=== PATIENT | male | born 2000 | race American Indian/Alaskan Native ===

== ENCOUNTER 2019-01-25 09:54 | Emergency (ER) | payer OTHER ==
[2019-01-25 10:02] VITALS: BP 126/63
[2019-01-25 10:45] LABS: Bilirubin,Urine NEG (Negative); Blood,Urine NEG (Negative); Color,Urine Yellow (Yellow); Mucus,Urine FEW /HPF; Protein,Urine <15 mg/dL mg/dL (Negative); Urobilinogen,Urine < 2.0 mg/dL (<2.0); WBC,Urine < 1.0 /HPF (0.0-6.0)
[2019-01-25 11:02] LABS: Amphetamine Screen,Urine PRESUMPTIVE NEGATIVE; Benzodiazepines Screen,Urine PRESUMPTIVE NEGATIVE; Cannabinoid Screen,Urine PRESUMPTIVE NEGATIVE; Cocaine Screen,Urine PRESUMPTIVE NEGATIVE; Methadone Screen,Urine PRESUMPTIVE NEGATIVE; Opiate Screen,Urine PRESUMPTIVE NEGATIVE
[2019-01-25 11:55] LABS: Hematocrit 40.1 % (35.5-45.6); Mean Corpuscular HGB Conc 33 % (32-34); Mean Corpuscular Volume 80 fl (84-94); Platelet Count 272 K/mm3 (140-440); Red Blood Count 5.01 M/mm3 (3.65-5.03); Red Cell Distribution Width 13.8 % (13.2-15.2)
[2019-01-25 12:09] LABS: BUN/Creatinine Ratio 6; Blood Urea Nitrogen 6 mg/dL (9-20); Calcium 9.6 mg/dL (8.4-10.2); Hemolysis Index 5
[2019-01-25 12:53] LABS: Basophils % (Manual) 0 % (0.0-1.8); Eosinophils % (Manual) 0 % (0.0-4.3); Total Cells Counted 100
[2019-01-25 12:54] LABS: Large Platelets Few; Platelet Estimate Consistent w Auto; RBC Morphology Normal
--- NOTE | 2019-01-25 13:16 | Emergency Department Report ---
ED Psych HPI - General Chief Complaint: Psych Stated Complaint: MH EVALUATION Time Seen by Provider: 01/25/19 11:30 Source: patient, family Mode of arrival: Ambulatory Limitations: No Limitations - History of Present Illness Initial Comments: 18-year-old male whoin past medical or surgical history presents to the hospital with worsening mental health symptoms for the past year. Father states he is disorganized and has had memory problems. He also has disorganized thoughts and hallucinations. Patient admits to hearing voices. He denies suicidal or homicidal ideation. He denies any physical complaints at this time. Father also expresses concern due to history of mental health in the family. - Related Data Allergies Allergy/AdvReac Type Severity Reaction Status Date / Time No Known Allergies Allergy Unverified 01/25/19 09:55 ED Review of Systems ROS: Stated complaint: MH EVALUATION Other details as noted in HPI Comment: All other systems reviewed and negative ED Past Medical Hx - Past Medical History Previous Medical History?: No - Surgical History Past Surgical History?: No - Social History Smoking Status: Current Every Day Smoker Substance Use Type: Marijuana ED Physical Exam - General Limitations: No Limitations - Other Other exam information: General: No limitations, patient is alert in no acute distress Head exam: Atraumatic, normocephalic Eyes exam: Normal appearance, pupils equal reactive to light, extraocular movements intact ENT: Moist mucous membrane Neck exam: Normal inspection, full range of motion, no meningismus nontender Respiratory exam: Clear to auscultation bilateral, no wheezes, rales, crackles Cardiovascular: Normal rate and rhythm, normal heart sounds Abdomen: Soft, nondistended, and nontender, with normal bowel sounds, no rebound, or guarding Extremity: Full range of motion normal inspection no deformity Back: Normal Inspection, full range of motion, no tenderness Neurologic: Alert, oriented x3, cranial nerves intact, no motor or sensory deficit Psychiatric: Calm, Cooperative, poor historian, laughing intermittently while obtaining history from father Skin: Warm, dry, intact ED Course Vital Signs 01/25/19 10:00 Temperature 97.8 F Pulse Rate 53 L Respiratory 18 Rate Blood Pressure 126/63 O2 Sat by Pulse 99 Oximetry ED Medical Decision Making - Lab Data Result diagrams: 01/25/19 11:16 01/25/19 11:16 Lab Results 01/25/19 01/25/19 01/25/19 Range/Units 10:15 10:15 11:16 WBC (4.5-11.0) K/mm3 RBC (3.65-5.03) M/mm3 Hgb (11.8-15.2) gm/dl Hct (35.5-45.6) % MCV (84-94) fl MCH (28-32) pg MCHC (32-34) % RDW (13.2-15.2) % Plt Count (140-440) K/mm3 Add Manual Diff Total Counted Seg Neutrophils % Seg Neuts % (Manual) (40.0-70.0) % Band Neutrophils % % Lymphocytes % (Manual) (13.4-35.0) % Reactive Lymphs % (Man) % Monocytes % (Manual) (0.0-7.3) % Eosinophils % (Manual) (0.0-4.3) % Basophils % (Manual) (0.0-1.8) % Metamyelocytes % % Myelocytes % % Promyelocytes % % Blast Cells % % Nucleated RBC % Seg Neutrophils # Man (1.8-7.7) K/mm3 Band Neutrophils # K/mm3 Lymphocytes # (Manual) (1.2-5.4) K/mm3 Abs React Lymphs (Man) K/mm3 Monocytes # (Manual) (0.0-0.8) K/mm3 Eosinophils # (Manual) (0.0-0.4) K/mm3 Basophils # (Manual) (0.0-0.1) K/mm3 Metamyelocytes # K/mm3 Myelocytes # K/mm3 Promyelocytes # K/mm3 Blast Cells # K/mm3 WBC Morphology Hypersegmented Neuts Hyposegmented Neuts Hypogranular Neuts Smudge Cells Toxic Granulation Toxic Vacuolation Dohle Bodies Pelger-Huet Anomaly Daryl Rods Platelet Estimate Clumped Platelets Plt Clumps, EDTA Large Platelets Giant Platelets Platelet Satelliting Plt Morphology Comment RBC Morphology Dimorphic RBCs Polychromasia Hypochromasia Poikilocytosis Anisocytosis Microcytosis Macrocytosis Spherocytes Pappenheimer Bodies Sickle Cells Target Cells Tear Drop Cells Ovalocytes Helmet Cells [place] Bodies [place] Rings [place] Cells Bite Cells Crenated Cell Elliptocytes Acanthocytes (Spur) Rouleaux Hemoglobin C Crystals Schistocytes Malaria parasites Adis Bodies Hem Pathologist Commnt Sodium (137-145) mmol/L Potassium (3.6-5.0) mmol/L Chloride (98-107) mmol/L Carbon Dioxide (22-30) mmol/L Anion Gap mmol/L BUN (9-20) mg/dL Creatinine (0.8-1.5) mg/dL Estimated GFR ml/min BUN/Creatinine Ratio % Glucose (75-100) mg/dL Calcium (8.4-10.2) mg/dL Urine Color Yellow (Yellow) Urine Turbidity Clear (Clear) Urine pH 7.0 (5.0-7.0) Ur Specific [place] 1.006 (1.003-1.030) Urine Protein <15 mg/dl (Negative) mg/dL Urine Glucose (UA) Neg (Negative) mg/dL Urine Ketones Neg (Negative) mg/dL Urine Blood Neg (Negative) Urine Nitrite Neg (Negative) Urine Bilirubin Neg (Negative) Urine Urobilinogen < 2.0 (<2.0) mg/dL Ur Leukocyte Esterase Neg (Negative) Urine WBC (Auto) < 1.0 (0.0-6.0) /HPF Urine RBC (Auto) 2.0 (0.0-6.0) /HPF Urine Mucus Few /HPF Salicylates < 0.3 L (2.8-20.0) mg/dL Urine Opiates Screen Presumptive negative Urine Methadone Screen Presumptive negative Acetaminophen (10.0-30.0) ug/mL Ur Barbiturates Screen Presumptive negative Ur Phencyclidine Scrn Presumptive negative Ur Amphetamines Screen Presumptive negative U Benzodiazepines Scrn Presumptive negative Urine Cocaine Screen Presumptive negative U Marijuana (THC) Screen Presumptive negative Drugs of Abuse Note Disclamer Plasma/Serum Alcohol (0-0.07) % 01/25/19 01/25/19 01/25/19 Range/Units 11:16 11:16 11:16 WBC (4.5-11.0) K/mm3 RBC (3.65-5.03) M/mm3 Hgb (11.8-15.2) gm/dl Hct (35.5-45.6) % MCV (84-94) fl MCH (28-32) pg MCHC (32-34) % RDW (13.2-15.2) % Plt Count (140-440) K/mm3 Add Manual Diff Total Counted Seg Neutrophils % Seg Neuts % (Manual) (40.0-70.0) % Band Neutrophils % % Lymphocytes % (Manual) (13.4-35.0) % Reactive Lymphs % (Man) % Monocytes % (Manual) (0.0-7.3) % Eosinophils % (Manual) (0.0-4.3) % Basophils % (Manual) (0.0-1.8) % Metamyelocytes % % Myelocytes % % Promyelocytes % % Blast Cells % % Nucleated RBC % Seg Neutrophils # Man (1.8-7.7) K/mm3 Band Neutrophils # K/mm3 Lymphocytes # (Manual) (1.2-5.4) K/mm3 Abs React Lymphs (Man) K/mm3 Monocytes # (Manual) (0.0-0.8) K/mm3 Eosinophils # (Manual) (0.0-0.4) K/mm3 Basophils # (Manual) (0.0-0.1) K/mm3 Metamyelocytes # K/mm3 Myelocytes # K/mm3 Promyelocytes # K/mm3 Blast Cells # K/mm3 WBC Morphology Hypersegmented Neuts Hyposegmented Neuts Hypogranular Neuts Smudge Cells Toxic Granulation Toxic Vacuolation Dohle Bodies Pelger-Huet Anomaly Daryl Rods Platelet Estimate Clumped Platelets Plt Clumps, EDTA Large Platelets Giant Platelets Platelet Satelliting Plt Morphology Comment RBC Morphology Dimorphic RBCs Polychromasia Hypochromasia Poikilocytosis Anisocytosis Microcytosis Macrocytosis Spherocytes Pappenheimer Bodies Sickle Cells Target Cells Tear Drop Cells Ovalocytes Helmet Cells [place] Bodies [place] Rings [place] Cells Bite Cells Crenated Cell Elliptocytes Acanthocytes (Spur) Rouleaux Hemoglobin C Crystals Schistocytes Malaria parasites Adis Bodies Hem Pathologist Commnt Sodium 139 (137-145) mmol/L Potassium 3.9 (3.6-5.0) mmol/L Chloride 101.4 (98-107) mmol/L Carbon Dioxide 27 (22-30) mmol/L Anion Gap 15 mmol/L BUN 6 L (9-20) mg/dL Creatinine 1.0 (0.8-1.5) mg/dL Estimated GFR > 60 ml/min BUN/Creatinine Ratio 6 % Glucose 98 (75-100) mg/dL Calcium 9.6 (8.4-10.2) mg/dL Urine Color (Yellow) Urine Turbidity (Clear) Urine pH (5.0-7.0) Ur Specific [place] (1.003-1.030) Urine Protein (Negative) mg/dL Urine Glucose (UA) (Negative) mg/dL Urine Ketones (Negative) mg/dL Urine Blood (Negative) Urine Nitrite (Negative) Urine Bilirubin (Negative) Urine Urobilinogen (<2.0) mg/dL Ur Leukocyte Esterase (Negative) Urine WBC (Auto) (0.0-6.0) /HPF Urine RBC (Auto) (0.0-6.0) /HPF Urine Mucus /HPF Salicylates (2.8-20.0) mg/dL Urine Opiates Screen Urine Methadone Screen Acetaminophen < 5.0 L (10.0-30.0) ug/mL Ur Barbiturates Screen Ur Phencyclidine Scrn Ur Amphetamines Screen U Benzodiazepines Scrn Urine Cocaine Screen U Marijuana (THC) Screen Drugs of Abuse Note Plasma/Serum Alcohol < 0.01 (0-0.07) % 01/25/19 Range/Units 11:16 WBC 2.2 L (4.5-11.0) K/mm3 RBC 5.01 (3.65-5.03) M/mm3 Hgb 13.0 (11.8-15.2) gm/dl Hct 40.1 (35.5-45.6) % MCV 80 L (84-94) fl MCH 26 L (28-32) pg MCHC 33 (32-34) % RDW 13.8 (13.2-15.2) % Plt Count 272 (140-440) K/mm3 Add Manual Diff Complete Total Counted 100 Seg Neutrophils % Bicycle Racer Seg Neuts % (Manual) 22.0 L (40.0-70.0) % Band Neutrophils % 2.0 % Lymphocytes % (Manual) 54.0 H (13.4-35.0) % Reactive Lymphs % (Man) 5.0 % Monocytes % (Manual) 17.0 H (0.0-7.3) % Eosinophils % (Manual) 0 (0.0-4.3) % Basophils % (Manual) 0 (0.0-1.8) % Metamyelocytes % 0 % Myelocytes % 0 % Promyelocytes % 0 % Blast Cells % 0 % Nucleated RBC % Not Reportable Seg Neutrophils # Man 0.5 L (1.8-7.7) K/mm3 Band Neutrophils # 0.0 K/mm3 Lymphocytes # (Manual) 1.2 (1.2-5.4) K/mm3 Abs React Lymphs (Man) 0.1 K/mm3 Monocytes # (Manual) 0.4 (0.0-0.8) K/mm3 Eosinophils # (Manual) 0.0 (0.0-0.4) K/mm3 Basophils # (Manual) 0.0 (0.0-0.1) K/mm3 Metamyelocytes # 0.0 K/mm3 Myelocytes # 0.0 K/mm3 Promyelocytes # 0.0 K/mm3 Blast Cells # 0.0 K/mm3 WBC Morphology Not Reportable Hypersegmented Neuts Not Reportable Hyposegmented Neuts Not Reportable Hypogranular Neuts Not Reportable Smudge Cells Not Reportable Toxic Granulation Not Reportable Toxic Vacuolation Not Reportable Dohle Bodies Not Reportable Pelger-Huet Anomaly Not Reportable Daryl Rods Not Reportable Platelet Estimate Consistent w auto Clumped Platelets Not Reportable Plt Clumps, EDTA Not Reportable Large Platelets Few Giant Platelets Not Reportable Platelet Satelliting Not Reportable Plt Morphology Comment Not Reportable RBC Morphology Normal Dimorphic RBCs Not Reportable Polychromasia Not Reportable Hypochromasia Not Reportable Poikilocytosis Not Reportable Anisocytosis Not Reportable Microcytosis Not Reportable Macrocytosis Not Reportable Spherocytes Not Reportable Pappenheimer Bodies Not Reportable Sickle Cells Not Reportable Target Cells Not Reportable Tear Drop Cells Not Reportable Ovalocytes Not Reportable Helmet Cells Not Reportable [place] Bodies Not Reportable [place] Rings Not Reportable [place] Cells Not Reportable Bite Cells Not Reportable Crenated Cell Not Reportable Elliptocytes Not Reportable Acanthocytes (Spur) Not Reportable Rouleaux Not Reportable Hemoglobin C Crystals Not Reportable Schistocytes Not Reportable Malaria parasites Not Reportable Adis Bodies Not Reportable Hem Pathologist Commnt No Sodium (137-145) mmol/L Potassium (3.6-5.0) mmol/L Chloride (98-107) mmol/L Carbon Dioxide (22-30) mmol/L Anion Gap mmol/L BUN (9-20) mg/dL Creatinine (0.8-1.5) mg/dL Estimated GFR ml/min BUN/Creatinine Ratio % Glucose (75-100) mg/dL Calcium (8.4-10.2) mg/dL Urine Color (Yellow) Urine Turbidity (Clear) Urine pH (5.0-7.0) Ur Specific [place] (1.003-1.030) Urine Protein (Negative) mg/dL Urine Glucose (UA) (Negative) mg/dL Urine Ketones (Negative) mg/dL Urine Blood (Negative) Urine Nitrite (Negative) Urine Bilirubin (Negative) Urine Urobilinogen (<2.0) mg/dL Ur Leukocyte Esterase (Negative) Urine WBC (Auto) (0.0-6.0) /HPF Urine RBC (Auto) (0.0-6.0) /HPF Urine Mucus /HPF Salicylates (2.8-20.0) mg/dL Urine Opiates Screen Urine Methadone Screen Acetaminophen (10.0-30.0) ug/mL Ur Barbiturates Screen Ur Phencyclidine Scrn Ur Amphetamines Screen U Benzodiazepines Scrn Urine Cocaine Screen U Marijuana (THC) Screen Drugs of Abuse Note Plasma/Serum Alcohol (0-0.07) % - Radiology Data Radiology results: report reviewed PROCEDURE: CT HEAD/BRAIN WO CON TECHNIQUE: Computerized tomography of the head was performed without contrast material. CT DOSE LENGTH PRODUCT: 928.2 mGycm HISTORY: psychosis COMPARISONS: None FINDINGS: Skull and scalp: Normal . Paranasal sinuses: Normal . Ventricles and subarachnoid spaces: Normal . Cerebrum: No evidence of hemorrhage, acute infarction or mass . Cerebellum and brainstem: No evidence of hemorrhage, acute infarction or mass . IMPRESSION: No evidence of acute intracranial pathology. - Differential Diagnosis new-onset psychosis, schizophrenia, bipolar, drug abuse Critical Care Time: No Critical care attestation.: If time is entered above; I have spent that time in minutes in the direct care of this critically ill patient, excluding procedure time. ED Disposition Clinical Impression: Leukopenia, Psychosis Disposition: DC-01 TO HOME OR SELFCARE Is pt being admited?: No Does the pt Need Aspirin: No Condition: Stable Instructions: Brief Psychotic Disorder (ED) Additional Instructions: Take the medication as prescribed. Follow up with your doctor or the clinic/doctor provided. Return if symptoms worsen as indicated by your discharge instructions It is very Important that you follow up with a psychiatrist for further evaluation and diagnosis of your psychiatric disorder. It is also important that you follow up with your primary care doctor for your low white blood cell count. A primary care doctor can monitor and determine if further testing is required. Take a copy of the CAT scan and labs are provided to your doctors for follow-up Referrals[facility] [Outside] - 3-5 Days VALLONIA JOANNA WHITTAKER MD [Primary Care Provider] - 3-5 Days YONIS SHOOK MD [Staff Physician] - 3-5 Days (primary care doctor ) Time of Disposition: 16:08
--- NOTE | 2019-01-25 15:43 | Cat Scan Report ---
PROCEDURE: CT HEAD/BRAIN WO CON TECHNIQUE: Computerized tomography of the head was performed without contrast material. CT DOSE LENGTH PRODUCT: 928.2 mGycm HISTORY: psychosis COMPARISONS: None FINDINGS: Skull and scalp: Normal . Paranasal sinuses: Normal . Ventricles and subarachnoid spaces: Normal . Cerebrum: No evidence of hemorrhage, acute infarction or mass . Cerebellum and brainstem: No evidence of hemorrhage, acute infarction or mass . IMPRESSION: No evidence of acute intracranial pathology. This document is electronically signed by Ayaan Colin MD., January 25 2019 03:41:42 PM ET
== END 2019-01-25 16:22 | disposition home or self-care (01) ==
LOC: ED 09:54
DX: F29 Unspecified psychosis not due to a substance or known physiological condition (principal); D72.819 Decreased white blood cell count, unspecified; F17.200 Nicotine dependence, unspecified, uncomplicated; F12.10 Cannabis abuse, uncomplicated
CPT/HCPCS: 36415; 70450; 80048; 80307; 81001; 85007; 85025; 99284; G0480; 80320

== ENCOUNTER 2019-09-01 10:20 | Emergency (ER) | payer SELFPAY ==
--- NOTE | 2019-09-01 11:54 | Emergency Department Report ---
ED Psych HPI - General Chief Complaint: Altered Mental Status Stated Complaint: THROAT PAIN Time Seen by Provider: 09/01/19 11:39 Source: family Mode of arrival: Ambulatory - History of Present Illness Initial Comments: Patient is 19 years old male with undiagnosed psychiatric problem. Patient brought to the emergency room by his grandmother. Grandmother stated that patient has been acting weird with bizarre behavior. Patient stated that he walked into the street yesterday completely naked. She stated that he is not taking care of himself. He stated that he will easily get lost if he went outside by himself. Patient is calm and and and able to answer most of the questions correctly. Patient was seen here in January 2019 for the same problem, accompanied by his father at that time. Patient had a CT brain and it was negative. According to the grandmother patient was admitted to [facility] and he was taking his medication and then they stop his medication and all his symptoms came back again. Patient currently denying any suicidal or homicidal ideation. He also denied any visual or due to hallucination. MD Complaint: altered mental status -: days(s) Associated Psychiatric Symptoms: racing thoughts - Related Data Allergies Allergy/AdvReac Type Severity Reaction Status Date / Time No Known Allergies Allergy Unverified 01/25/19 09:55 ED Review of Systems ROS: Stated complaint: THROAT PAIN Other details as noted in HPI Comment: All other systems reviewed and negative Constitutional: denies: chills, fever Respiratory: denies: cough, shortness of breath, SOB with exertion Cardiovascular: denies: chest pain Gastrointestinal: denies: abdominal pain, nausea Musculoskeletal: denies: back pain Psychiatric: denies: anxiety, auditory hallucinations, visual hallucinations, homicidal thoughts, suicidal thoughts ED Past Medical Hx - Past Medical History Previous Medical History?: No - Surgical History Past Surgical History?: No - Social History Smoking Status: Current Every Day Smoker Substance Use Type: Marijuana ED Physical Exam - General Limitations: Altered Mental Status General appearance: alert, in no apparent distress - Head Head exam: Present: atraumatic, normocephalic, normal inspection - Eye Eye exam: Present: normal appearance - ENT ENT exam: Present: normal exam, normal orophraynx, mucous membranes moist - Neck Neck exam: Present: normal inspection, full ROM. Absent: tenderness, meningismus, lymphadenopathy, thyromegaly - Respiratory Respiratory exam: Present: normal lung sounds bilaterally - Cardiovascular Cardiovascular Exam: Present: regular rate, normal rhythm, normal heart sounds - GI/Abdominal GI/Abdominal exam: Present: soft, normal bowel sounds. Absent: distended, tenderness, guarding, rebound, rigid, organomegaly, mass, bruit, pulsatile mass, hernia - Extremities Exam Extremities exam: Present: normal inspection, full ROM, normal capillary refill. Absent: tenderness, pedal edema, calf tenderness - Back Exam Back exam: Present: normal inspection, full ROM. Absent: CVA tenderness (R), CVA tenderness (L), muscle spasm, paraspinal tenderness, vertebral tenderness - Neurological Exam Neurological exam: Present: alert, altered, CN II-XII intact, normal gait, reflexes normal. Absent: motor sensory deficit - Psychiatric Psychiatric exam: Absent: agitated, anxious, flat affect, manic, homicidal ideation, suicidal ideation - Skin Skin exam: Present: warm, intact, normal color ED Course Vital Signs 09/01/19 10:25 Temperature 98.8 F Pulse Rate 91 H Respiratory 16 Rate Blood Pressure 141/83 O2 Sat by Pulse 100 Oximetry Critical care attestation.: If time is entered above; I have spent that time in minutes in the direct care of this critically ill patient, excluding procedure time. ED Disposition Condition: Stable
[2019-09-01 12:57] LABS: Eosinophils # (Auto) 0.1 K/mm3 (0.0-0.4); Eosinophils % (Auto) 1.8 % (0.0-4.3); Hematocrit 39.7 % (35.5-45.6); Hemoglobin 12.7 gm/dl (11.8-15.2); Lymphocytes # (Auto) 0.9 K/mm3 (1.2-5.4); Mean Corpuscular HGB Conc 32 % (32-34); Mean Corpuscular Volume 79 fl (84-94); Monocytes # (Auto) 0.5 K/mm3 (0.0-0.8); Monocytes % (Auto) 11.3 % (0.0-7.3); Platelet Count 301 K/mm3 (140-440); Red Blood Count 5.01 M/mm3 (3.65-5.03); Red Cell Distribution Width 13.6 % (13.2-15.2)
[2019-09-01 13:15] LABS: BUN/Creatinine Ratio 13; Blood Urea Nitrogen 12 mg/dL (9-20); Calcium 9.4 mg/dL (8.4-10.2); Hemolysis Index 9
[2019-09-01 13:23] LABS: Alanine Aminotransferase 31 units/L (7-56); Albumin 4.2 g/dL (3.9-5)
[2019-09-01 13:27] LABS: Bilirubin,Direct < 0.2 mg/dL (0-0.2)
[2019-09-01 13:45] LABS: Bilirubin,Urine NEG (Negative); Blood,Urine NEG (Negative); Color,Urine Yellow (Yellow); Mucus,Urine FEW /HPF; Protein,Urine <15 mg/dL mg/dL (Negative)
[2019-09-01 13:56] LABS: Amphetamine Screen,Urine PRESUMPTIVE NEGATIVE; Benzodiazepines Screen,Urine PRESUMPTIVE NEGATIVE; Cannabinoid Screen,Urine PRESUMPTIVE NEGATIVE; Cocaine Screen,Urine PRESUMPTIVE NEGATIVE; Methadone Screen,Urine PRESUMPTIVE NEGATIVE; Opiate Screen,Urine PRESUMPTIVE NEGATIVE
--- NOTE | 2019-09-02 14:10 | Consultation ---
History of Present Illness - Reason for Consult Consult date: 09/02/19 Reason for consult: psychosis - Chief Complaint Chief complaint: psychosis - History of Present Psychiatric Illness Yony Roth is a 19y/o male patient who is said to have come to the ER for bizarre behaviors according to the chart. Upon my interview today, the patient was sitting in a chair. He was a/o x 3. He is dressed appropriately. He makes good eye contact. He is smiling inappropriately. His behavior is bizarre. He is responding to internal stimuli. At one point during the interview, he jumps then looks down. He is slow to respond and appears to be listening to something before responding to any questions. When asked the patient about his slow response time, he replied "I'm thinking. Thinking is critical." He says "me, I'm good" when asking how he was. The patient is a poor historian. He could not give me any background history. He says his "mother brought him here for a meeting." He later told me his "grandma brought him." He looks up at the ceiling and to his left during the interview. He denies any psychiatric history. He denies any SI/HI or attempts. He denies any medication history or hallucinations of any kind. He denies any illicit drug use. He also denies any alcohol or nicotine use. As I'm leaving the room, the patient said something. When asking him to repeat what he said, he replied "I didn't say nothing. I'm watching t.v." PAST PSYCHIATRIC HISTORY: Could not adequately assess due to patient factors PAST MEDICAL HISTORY: Could not adequately assess due to patient factors Family Psychiatric History None reported or documented SOCIAL HISTORY Marital Status: Single Living Arrangements: lives with mother Employment Status: Disabled Access to guns/weapons: Denies Education: high school History of Abuse: Denies Legal History: Denies REVIEW OF SYSTEMS Constitutional: Negative for weight loss ENT: Negative for stridor Respiratory: Negative for cough or hemoptysis All other systems reviewed and are negative MSE Appearance: Dressed appropriately. Behavior: Bizarre, calm Mood: "good" Affect: Smiling inappropriately Thought Process: responding to internal stimuli Speech: Normal tone and pace Thought Content Suicidal: Denies Homicidal: Denies Hallucinations: Auditory Delusions: None elicited Consciousness: Alert Cognition/Memory: Impaired Insight/Judgment: Impaired Assessment: Schizoaffective Disorder Plan Continue 1013 Medications Doxepoin 10mg po qhs Melatonin 5mg po qhs prn insomnia Risperidone 0.5mg p BID Geodon 10mg IM q4h prn agitation Sitter: Defer to primary Medical: Per primary Disposition: The patient meets the criteria for acute inpatient hospitalization. Please transfer to an acute psych facility once medically cleared. Will follow until the patient is transferred. Please call with any questions or concerns. Thank you for this consult. Medications and Allergies Allergies Allergy/AdvReac Type Severity Reaction Status Date / Time No Known Allergies Allergy Unverified 01/25/19 09:55 Home Medications Medication Instructions Recorded Confirmed Last Taken Type No Known Home Medications [No 09/01/19 09/01/19 Unknown History Reported Home Medications] Unobtainable 09/01/19 Unknown History Mental Status Exam - Vital signs Last Vital Signs Temp 98.0 F 09/02/19 07:50 Pulse 65 09/02/19 07:50 Resp 20 09/02/19 07:50 BP 124/91 09/02/19 07:50 Pulse Ox 100 09/02/19 07:50 Results Result Diagrams: 09/01/19 12:04 09/01/19 12:04 All other labs normal.
[2019-09-02] MEDS: risperiDONE 0.25 MG TAB PO SCH ×2 (16:00→22:17)
[2019-09-02] MEDS ORDERED: DOXEPIN 10 MG CAP PO SCH (22:00)
[2019-09-03] MEDS: risperiDONE 0.25 MG TAB PO SCH (10:54)
--- NOTE | 2019-09-03 12:17 | Progress Note ---
Subjective - Reason for Consult Consult date: 09/03/19 Reason for consult: psychosis - Chief Complaint Chief complaint: During my interview with the patient this morning, he is found standing in his room with his head wrapped in his linen. He is dressed appropriately. He makes fair eye contact. He seems suspicious. He's caught quickly glancing around as I'm writing, but looks back at me when I look up. He has poor hygiene. He is malodorous. His affect is labile. His behavior is bizarre. He pauses and appears to be thinking before every response. He says he's "doing well." He says he's here for a "psychiatric check up." When asked if he's hallucinating or hear voices, he looks up toward the ceiling, and replies, "yes, yours." He then says "that's crazy, hearing voices." He says he "didn't sleep well. I'm just not comfortable." When asking the patient about his mood, he wiggles from side to side, and says "vickie stable." He denies SI/HI. REVIEW OF SYSTEMS Constitutional: Negative for weight loss ENT: Negative for stridor Respiratory: Negative for cough or hemoptysis All other systems reviewed and are negative MSE Appearance: Dressed appropriately. Standing. Wrapped in linen. Behavior: Bizarre Mood: "vickie stable" Affect: Labile Thought Process: responding to internal stimuli Speech: Normal tone and pace Thought Content Suicidal: Denies Homicidal: Denies Hallucinations: Auditory Delusions: Appears suspicious Consciousness: Alert Cognition/Memory: Impaired Insight/Judgment: Impaired Assessment: Schizoaffective Disorder Plan Continue 1013 Medications Increase Doxepin 25mg po qhs Increase Risperidone 1mg p BID Sitter: Defer to primary Medical: Per primary Disposition: The patient meets the criteria for acute inpatient hospitalization. Please transfer to an acute psych facility once medically cleared. Will follow until the patient is transferred. Please call with any questions or concerns. Thank you for this consult. Mental Status Exam - Vital signs Last Vital Signs Temp 98.3 F 09/03/19 07:47 Pulse 89 09/03/19 07:47 Resp 20 09/03/19 07:47 BP 117/89 09/03/19 07:47 Pulse Ox 100 09/03/19 07:47
[2019-09-03] MEDS ORDERED: DOXEPIN 10 MG CAP PO SCH (12:18)
[2019-09-04] MEDS: DOXEPIN 25 MG CAP PO SCH ×2 (00:40→23:00)
[2019-09-04] MEDS: risperiDONE 0.25 MG TAB PO SCH ×3 (00:40→23:00)
[2019-09-04] MEDS ORDERED: WATER FOR INJ Sterile (PF) 10 ML ONE (13:31)
[2019-09-04] MEDS: ZIPRASIDONE MESYLATE 20 MG VIAL IM PRN (13:41)
--- NOTE | 2019-09-04 14:55 | Progress Note ---
Subjective - Reason for Consult Consult date: 09/04/19 Reason for consult: psychosis - Chief Complaint Chief complaint: I reviewed the patient's medical record and discussed the patient's progress with the nursing staff. The nurse note states the patient attempted to go into other patients rooms. The patient was redirected again. The patient stated to the nurse that he needed something for his agitation. Geodon 10 mg administered to patient. During my interview with the patient this morning,the patient was lying down. He makes fair eye contact. He's lying down staring at the ceiling. Dressed appropriately. He is a/o x 3. He says he's "dong well." He says his night was "restful." The patient says he was brought her "for a check up." He then says, "an evaluation." He denies SI/HI or hallucinations of any kind. When asking the patient why was he staring at the ceiling, he replied, "the light. The lights are flickering." The lights had not flicked at all during my interview with the patient. REVIEW OF SYSTEMS Constitutional: Negative for weight loss ENT: Negative for stridor Respiratory: Negative for cough or hemoptysis All other systems reviewed and are negative MSE Appearance: Dressed appropriately. Laying down. Behavior: calm and cooperative Mood: "doing well" Affect: Restricted Thought Process: responding to internal stimuli Speech: Normal tone and pace Thought Content Suicidal: Denies Homicidal: Denies Hallucinations: Auditory, visual Delusions: None elicited Consciousness: Alert Cognition/Memory: Limited Insight/Judgment: Limited Assessment: Schizoaffective Disorder Plan Continue 1013 Medications Increased Risperidone 2mg po BID Start Cogentin 0.5mg po daily Sitter: Defer to primary Medical: Per primary Disposition: The patient meets the criteria for acute inpatient hospitalization. Please transfer to an acute psych facility once medically cleared. Will follow until the patient is transferred. Please call with any questions or concerns. Thank you for this consult. Mental Status Exam - Vital signs Last Vital Signs Temp 97.6 F 09/04/19 08:15 Pulse 64 09/04/19 08:15 Resp 16 09/04/19 08:15 BP 115/67 09/04/19 08:15 Pulse Ox 100 09/04/19 08:15
[2019-09-04] MEDS ORDERED: BENZTROPINE 0.5 MG TAB PO ONE (14:58)
--- NOTE | 2019-09-05 10:30 | Emergency Department Report ---
Blank Doc - Documentation Documentation: I was asked by nursing to comment on possibility of patient having productive cough, mucous, headache and sore throat. The patient is sitting calmly in his room but denies productive cough, mucous, headache or sore throat. Patient currently denies any complaints. It is not certain where this history came from. Lungs CTA bilaterally
[2019-09-05] MEDS: risperiDONE 0.25 MG TAB PO SCH (11:13)
--- NOTE | 2019-09-05 13:10 | Progress Note ---
Subjective - Reason for Consult Consult date: 09/05/19 Reason for consult: psychiatric assessment Requesting physician: JOSEPH SYKES - Chief Complaint Chief complaint: During my interview with the patient this morning,the patient was sitting in a recliner. The patient is alert oriented 3 patient is dressed appropriately for occasional. The patient maintained intermittent eye contact. The patient is wrapped up in sheets and rocking back and forth. When asked if he was cold and why he was rocking back and forth the patient said I don't know. The patient is very hesitant with his answers. The patient continued to smile inappropriately. He reports his mood as okay the patient denies suicidal or homicidal ideation. He denies seeing or hearing things. When the patient was asked if he is taking his medication the patient's reply I saw him later started smiling again. The patient appeared to be responding to internal stimuli. REVIEW OF SYSTEMS Constitutional: Negative for weight loss ENT: Negative for stridor Respiratory: Negative for cough or hemoptysis All other systems reviewed and are negative MSE Appearance: Dressed appropriately. Behavior: calm and cooperative Mood: "OK" Affect: Restricted Thought Process: responding to internal stimuli Speech: low tone and pace Thought Content Suicidal: Denies Homicidal: Denies Hallucinations: Auditory, Delusions: None elicited Consciousness: Alert Cognition/Memory: Limited Insight/Judgment: Limited Assessment: Schizoaffective Disorder Plan Continue 1013 Medications continue medication regimen Sitter: Defer to primary Medical: Per primary Disposition: The patient meets the criteria for acute inpatient hospitalization. Please transfer to an acute psych facility once medically cleared. Will follow until the patient is transferred. Please call with any questions or concerns. Thank you for this consult. Mental Status Exam - Vital signs Last Vital Signs Temp 98.1 F 09/05/19 07:00 Pulse 89 09/05/19 07:00 Resp 18 09/05/19 02:19 BP 150/92 09/05/19 07:00 Pulse Ox 100 09/05/19 02:19
--- NOTE | 2019-09-05 17:50 | XRay Report ---
CHEST 1 VIEW 09/05/2019 5:18 PM INDICATION / CLINICAL INFORMATION: cough. COMPARISON: None available. FINDINGS: SUPPORT DEVICES: None. HEART / MEDIASTINUM: No significant abnormality. LUNGS / PLEURA: No significant pulmonary or pleural abnormality. No pneumothorax. ADDITIONAL FINDINGS: No significant additional findings. IMPRESSION: 1. No acute findings. Signer Name: Bryan Baker MD Signed: 09/05/2019 5:45 PM Workstation Name: [id number]
[2019-09-05] MEDS: risperiDONE 1 MG TAB PO SCH (22:10)
[2019-09-05] MEDS: DOXEPIN 25 MG CAP PO SCH (22:11)
[2019-09-05] MEDS: MELATONIN 5 MG TAB PO PRN (22:11)
[2019-09-06] MEDS: risperiDONE 1 MG TAB PO SCH ×2 (10:50→22:02)
--- NOTE | 2019-09-06 13:16 | Progress Note ---
Subjective - Reason for Consult Consult date: 09/06/19 Reason for consult: psychiatric assessment - Chief Complaint Chief complaint: During my interview with the patient this morning,the patient was sitting in a recliner. The patient is alert oriented 3 . The patient maintained intermittent eye contact. the patient is disheveled. patient note with thought blocking,patient is very hesitant in answering questions, the patient's inappropriately smiles when asked questions. The patient denies suicidal or homicidal ideations, the patient denies visual or auditory hallucination. per staff patient paces a lot. REVIEW OF SYSTEMS Constitutional: Negative for weight loss ENT: Negative for stridor Respiratory: Negative for cough or hemoptysis All other systems reviewed and are negative MSE Appearance: Dressed appropriately. Behavior: calm and cooperative Mood: "OK" Affect: Restricted Thought Process: responding to internal stimuli Speech: low tone and pressured Thought Content Suicidal: Denies Homicidal: Denies Hallucinations: denies Delusions: None elicited Consciousness: Alert Cognition/Memory: Limited Insight/Judgment: Limited Assessment: Schizoaffective Disorder Plan Continue 1013 Medications continue medication regimen Sitter: Defer to primary Medical: Per primary Disposition: The patient meets the criteria for acute inpatient hospitalization. Please transfer to an acute psych facility once medically cleared. Will follow until the patient is transferred. Please call with any questions or concerns. Thank you for this consult. Mental Status Exam - Vital signs Last Vital Signs Temp 97.5 F L 09/06/19 09:56 Pulse 70 09/06/19 09:56 Resp 19 09/06/19 09:56 BP 148/82 09/06/19 09:56 Pulse Ox 100 09/06/19 09:56
[2019-09-06] MEDS ORDERED: SODIUM CHLORIDE 0.9% 1000 ML 0 ML ONE (20:02)
[2019-09-06] MEDS: MELATONIN 5 MG TAB PO PRN (22:02)
[2019-09-06] MEDS: DOXEPIN 25 MG CAP PO SCH (22:03)
[2019-09-07] MEDS: risperiDONE 1 MG TAB PO SCH ×2 (10:05→22:04)
--- NOTE | 2019-09-07 15:09 | Progress Note ---
Subjective - Reason for Consult Consult date: 09/07/19 Reason for consult: PSYCHIATRIC ASSESSMENT - Chief Complaint Chief complaint: During my interview with the patient this morning,the patient was sitting in a recliner. The patient is alert oriented 3 . The patient maintained intermittent eye contact. the patient is disheveled. patient note with thought blocking, patient is very hesitant in answering questions, the patient's inappropriately smiles when asked questions. The patient denies suicidal or homicidal ideations, the patient denies visual or auditory hallucination. per staff patient paces a lot.the patient reports his mood as okay and then starts smiling. He does report that he feels jumpy the patient pause for a while and started smiling.patient remained disorganized. REVIEW OF SYSTEMS Constitutional: Negative for weight loss ENT: Negative for stridor Respiratory: Negative for cough or hemoptysis All other systems reviewed and are negative MSE Appearance: Dressed appropriately. Behavior: calm and cooperative Mood: "OK" Affect: Restricted Thought Process: responding to internal stimuli Speech: low tone and pressured Thought Content Suicidal: Denies Homicidal: Denies Hallucinations: denies Delusions: None elicited Consciousness: Alert Cognition/Memory: Limited Insight/Judgment: Limited Assessment: Schizoaffective Disorder Plan Continue 1013 Medications start vistaril 25mg q6 prn anxiety/agitation Sitter: Defer to primary Medical: Per primary Disposition: The patient meets the criteria for acute inpatient hospitalization. Please transfer to an acute psych facility once medically cleared. Will follow until the patient is transferred. Please call with any questions or concerns. Thank you for this consult. Mental Status Exam - Vital signs Last Vital Signs Temp 97.5 F L 09/07/19 09:40 Pulse 100 H 09/07/19 09:40 Resp 16 09/07/19 01:00 BP 120/93 09/07/19 09:40 Pulse Ox 100 09/07/19 09:40
[2019-09-07] MEDS ORDERED: hydrOXYzine PAMOATE 25 MG CAP PO PRN (15:26)
[2019-09-07] MEDS: DOXEPIN 25 MG CAP PO SCH (22:04)
[2019-09-07] MEDS ORDERED: WATER FOR INJ Sterile (PF) 10 ML ONE (23:47)
[2019-09-07] MEDS: ZIPRASIDONE MESYLATE 20 MG VIAL IM PRN (23:52)
[2019-09-08 03:55] VITALS: BP 126/80
== END 2019-09-08 09:15 ==
LOC: ED 10:20 → EEVIPCON 10:20 → ED 09-08 09:15
DX: F25.9 Schizoaffective disorder, unspecified (principal); F17.200 Nicotine dependence, unspecified, uncomplicated; F12.10 Cannabis abuse, uncomplicated
CPT/HCPCS: 36415; 71045; 80048; 80076; 80307; 81001; 85025; 96372; 99285; J3486; 80320; G0480; J7030

== ENCOUNTER 2020-12-26 16:26 | Emergency (ER) | payer MEDICAID ==
--- NOTE | 2020-12-26 19:01 | Event Note ---
ED Screening Note Date of service: 12/26/20 Time: 18:58 ED Screening Note: 20 year old male with medical history of schizophrenia was brought to the ER today by family with complaints of what sounds like dystonic reaction. Patient was recently started on Abilify about 2 weeks ago. Mom states that patient has been having twitching to his mouth, and salivating, and jerks to the rest of his body today. she states that patient has been on different antipsychotics over the past year. She states that he has never had this reaction before. She states that she was concerned that patient was having a seizure. And she also researched, and that some of his symptoms could be related to neuroleptic malignant syndrome. This initial assessment/diagnostic orders/clinical plan/treatment(s) is/are subject to change based on patients health status, clinical progression and re- assessment by fellow clinical providers in the ED. Further treatment and workup at subsequent clinical providers discretion. Patient/guardian urged not to elope from the ED as their condition may be serious if not clinically assessed and managed. Initial orders include: labs/UA
[2020-12-26 19:16] LABS: Basophils # (Auto) 0.1 K/mm3 (0.0-0.1); Basophils % (Auto) 0.9 % (0.0-1.8); Eosinophils # (Auto) 0.2 K/mm3 (0.0-0.4); Eosinophils % (Auto) 2.7 % (0.0-4.3); Hematocrit 39.5 % (35.5-45.6); Hemoglobin 12.9 gm/dl (11.8-15.2); Lymphocytes # (Auto) 1.3 K/mm3 (1.2-5.4); Lymphocytes % (Auto) 22.7 % (13.4-35.0); Mean Corpuscular HGB Conc 33 % (32-34); Mean Corpuscular Volume 82 fl (84-94); Monocytes # (Auto) 0.7 K/mm3 (0.0-0.8); Monocytes % (Auto) 11.5 % (0.0-7.3); Platelet Count 254 K/mm3 (140-440); Red Blood Count 4.85 M/mm3 (3.65-5.03)
[2020-12-26 19:35] LABS: Alanine Aminotransferase 12 units/L (7-56); Albumin 4.4 g/dL (3.9-5); BUN/Creatinine Ratio 12; Blood Urea Nitrogen 11 mg/dL (9-20); Calcium 8.8 mg/dL (8.4-10.2); Hemolysis Index 6
--- NOTE | 2020-12-27 00:54 | Emergency Department Report ---
HPI - General Chief Complaint: Psych Time Seen by Provider: 12/26/20 18:58 - HPI HPI: This is a 20-year-old male who presents to the emergency department for a mental health evaluation and also an evaluation regarding concern over reactions to his psychiatric medications. The patient was diagnosed with schizophrenia about 1.5 years ago. Since that time he has been on 5 or 6 different antipsychotic medications. Currently he has been on Abilify 50 mg nightly over the past 2 to 3 weeks. I spoke to both the patient's sister, and his mother, and they say that the patient has been having some erratic movements that almost look like seizures, some stiffness and he has been having some issues with salivating. He follows with a Dr. Mack and through [facility] for psychiatry no past medical history. His family also says that they have concerned that the medication is also not working in treating his schizophrenia. He appears to be responding to internal stimuli, show some signs of paranoia and have abnormal behavior. Patient is a poor historian. When asked what brings him to the emergency department for evaluation, the patient says "resting." At the time of my initial examination he is able to answer orientation questions. However, he otherwise is not forthcoming with any information. ED Past Medical Hx - Past Medical History Previous Medical History?: Yes Hx Psychiatric Treatment: Yes (schizophrenia) - Surgical History Past Surgical History?: No - Social History Smoking Status: Current Every Day Smoker Substance Use Type: Alcohol, Prescribed - Medications Home Medications: Home Medications Medication Instructions Recorded Confirmed Last Taken Type traMADoL [Ultram] 50 mg PO Q6HR PRN #12 tablet 02/27/20 Unknown Rx ED Review of Systems ROS: Stated complaint: SCHIZOPRENIC EPISODE Other details as noted in HPI Comment: Unobtainable due to pts medical conditions Physical Exam - Physical Exam Physical Exam: GENERAL: The patient is well-developed well-nourished. HENT: Normocephalic. Atraumatic. Patient has moist mucous membranes. No drooling or trismus. EYES: Extraocular motions are intact. NECK: Supple. Trachea is midline. CHEST/LUNGS: Clear to auscultation. There is no respiratory distress noted. HEART/CARDIOVASCULAR: Regular. There is no tachycardia. There is no murmur. ABDOMEN: Abdomen is soft, nontender. Patient has normal bowel sounds. There is no abdominal distention. SKIN: Skin is warm and dry. NEURO: The patient is awake, alert, and cooperative. The patient has no focal neurologic deficits. Normal speech. Cranial nerves II through XII grossly intact. MUSCULOSKELETAL: There is no tenderness or deformity. There is no limitation range of motion. ED Medical Decision Making - Lab Data Result diagrams: 12/26/20 19:03 12/26/20 19:03 Lab Results 12/26/20 12/26/20 12/26/20 Range/Units 19:03 19:03 19:03 WBC 5.9 (4.5-11.0) K/mm3 RBC 4.85 (3.65-5.03) M/mm3 Hgb 12.9 (11.8-15.2) gm/dl Hct 39.5 (35.5-45.6) % MCV 82 L (84-94) fl MCH 27 L (28-32) pg MCHC 33 (32-34) % RDW 14.0 (13.2-15.2) % Plt Count 254 (140-440) K/mm3 Lymph % (Auto) 22.7 (13.4-35.0) % [place] % (Auto) 11.5 H (0.0-7.3) % Eos % (Auto) 2.7 (0.0-4.3) % Baso % (Auto) 0.9 (0.0-1.8) % Lymph # (Auto) 1.3 (1.2-5.4) K/mm3 [place] # (Auto) 0.7 (0.0-0.8) K/mm3 Eos # (Auto) 0.2 (0.0-0.4) K/mm3 Baso # (Auto) 0.1 (0.0-0.1) K/mm3 Seg Neutrophils % 62.2 (40.0-70.0) % Seg Neutrophils # 3.7 (1.8-7.7) K/mm3 Sodium 138 (137-145) mmol/L Potassium 3.9 (3.6-5.0) mmol/L Chloride 102.9 (98-107) mmol/L Carbon Dioxide 26 (22-30) mmol/L Anion Gap 13 mmol/L BUN 11 (9-20) mg/dL Creatinine 0.9 (0.8-1.3) mg/dL Estimated GFR > 60 ml/min BUN/Creatinine Ratio 12 % Glucose 69 L (75-100) mg/dL Calcium 8.8 (8.4-10.2) mg/dL Total Bilirubin 0.60 (0.1-1.2) mg/dL AST 26 (5-40) units/L ALT 12 (7-56) units/L Alkaline Phosphatase 45 (35-129) units/L Ammonia (25-60) umol/L Total Creatine Kinase (55-170) units/L Total Protein 7.2 (6.3-8.2) g/dL Albumin 4.4 (3.9-5) g/dL Albumin/Globulin Ratio 1.6 % TSH 1.020 (0.270-4.200) mlU/mL Salicylates (2.8-20.0) mg/dL Acetaminophen (10.0-30.0) ug/mL 12/26/20 12/26/20 12/27/20 Range/Units 19:03 19:03 01:55 WBC (4.5-11.0) K/mm3 RBC (3.65-5.03) M/mm3 Hgb (11.8-15.2) gm/dl Hct (35.5-45.6) % MCV (84-94) fl MCH (28-32) pg MCHC (32-34) % RDW (13.2-15.2) % Plt Count (140-440) K/mm3 Lymph % (Auto) (13.4-35.0) % [place] % (Auto) (0.0-7.3) % Eos % (Auto) (0.0-4.3) % Baso % (Auto) (0.0-1.8) % Lymph # (Auto) (1.2-5.4) K/mm3 [place] # (Auto) (0.0-0.8) K/mm3 Eos # (Auto) (0.0-0.4) K/mm3 Baso # (Auto) (0.0-0.1) K/mm3 Seg Neutrophils % (40.0-70.0) % Seg Neutrophils # (1.8-7.7) K/mm3 Sodium (137-145) mmol/L Potassium (3.6-5.0) mmol/L Chloride (98-107) mmol/L Carbon Dioxide (22-30) mmol/L Anion Gap mmol/L BUN (9-20) mg/dL Creatinine (0.8-1.3) mg/dL Estimated GFR ml/min BUN/Creatinine Ratio % Glucose (75-100) mg/dL Calcium (8.4-10.2) mg/dL Total Bilirubin (0.1-1.2) mg/dL AST (5-40) units/L ALT (7-56) units/L Alkaline Phosphatase (35-129) units/L Ammonia (25-60) umol/L Total Creatine Kinase 765 H (55-170) units/L Total Protein (6.3-8.2) g/dL Albumin (3.9-5) g/dL Albumin/Globulin Ratio % TSH (0.270-4.200) mlU/mL Salicylates < 0.3 L (2.8-20.0) mg/dL Acetaminophen 5.0 L (10.0-30.0) ug/mL 12/27/20 Range/Units 01:55 WBC (4.5-11.0) K/mm3 RBC (3.65-5.03) M/mm3 Hgb (11.8-15.2) gm/dl Hct (35.5-45.6) % MCV (84-94) fl MCH (28-32) pg MCHC (32-34) % RDW (13.2-15.2) % Plt Count (140-440) K/mm3 Lymph % (Auto) (13.4-35.0) % [place] % (Auto) (0.0-7.3) % Eos % (Auto) (0.0-4.3) % Baso % (Auto) (0.0-1.8) % Lymph # (Auto) (1.2-5.4) K/mm3 [place] # (Auto) (0.0-0.8) K/mm3 Eos # (Auto) (0.0-0.4) K/mm3 Baso # (Auto) (0.0-0.1) K/mm3 Seg Neutrophils % (40.0-70.0) % Seg Neutrophils # (1.8-7.7) K/mm3 Sodium (137-145) mmol/L Potassium (3.6-5.0) mmol/L Chloride (98-107) mmol/L Carbon Dioxide (22-30) mmol/L Anion Gap mmol/L BUN (9-20) mg/dL Creatinine (0.8-1.3) mg/dL Estimated GFR ml/min BUN/Creatinine Ratio % Glucose (75-100) mg/dL Calcium (8.4-10.2) mg/dL Total Bilirubin (0.1-1.2) mg/dL AST (5-40) units/L ALT (7-56) units/L Alkaline Phosphatase (35-129) units/L Ammonia 39.0 (25-60) umol/L Total Creatine Kinase (55-170) units/L Total Protein (6.3-8.2) g/dL Albumin (3.9-5) g/dL Albumin/Globulin Ratio % TSH (0.270-4.200) mlU/mL Salicylates (2.8-20.0) mg/dL Acetaminophen (10.0-30.0) ug/mL - Medical Decision Making This patient was brought into the emergency department for a mental health and physical evaluation. Patient's family is concerned that he has some reaction to the antipsychotic medications that he has been on. They told me that the patient has been having some erratic movements, some stiffness to his movements and there has been increased salivating to where he has been seen drooling. I did not witness any of these symptoms during my examination or during his ED course thus far. Oropharynx appears clear. He does not have any drooling or trismus. He has full range of motion of all of his extremities without any stiffness or rigidity. The patient was ambulatory in the emergency department and appeared stable. Thus far I have not seen any movements concerning for tar dive dyskinesia. The patient's vital signs have been reassuring throughout his ED course thus far including being afebrile. The patient's labs have been mostly unremarkable including CBC, metabolic panel, blood alcohol level, thyroid function. The CK level is slightly elevated but does not appear consistent with rhabdomyolysis. There is no leukocytosis. There is no transaminitis. There are no electrolyte abnormalities or signs of metabolic acidosis. We are still waiting for a urine sample for urinalysis and UDS, but the patient does not appear acutely intoxicated. If he is found to have a urinary tract infection then antibiotics will be added. I am not denying that the patient does intermittently get some of these symptoms described by his family, but I have not witnessed them during his ED course thus far. Some of those symptoms can be seen with antipsychotic therapy. Right now it does not appear consistent with neuroleptic malignant syndrome. Family also says that the patient still has been exhibiting some signs of psychosis, or an exacerbation of his schizophrenia. He has been responding to internal stimuli. He has been having some erratic behavior. They say that he h as been swatting at things that are not there and sometimes will yell out or have some intermittent and inappropriate anger responses. Patient will be seen by the psychiatric team in the morning and they will assist with further disposition. This patient does not appear to have any life-threatening emergencies at this time requiring admission. He is medically cleared for psychiatric placement. Critical Care Time: No Critical care attestation.: If time is entered above; I have spent that time in minutes in the direct care of this critically ill patient, excluding procedure time. ED Disposition Clinical Impression: Medical clearance for psychiatric admission, Acute psychosis Schizophrenia Qualifiers: Schizophrenia type: unspecified Qualified Code(s): F20.9 - Schizophrenia, unspecified Disposition: DC/TX-65 PSY HOSP/PSY UNIT Is pt being admited?: No Condition: Stable
--- NOTE | 2020-12-27 01:49 | Cat Scan Report ---
CT HEAD WITHOUT CONTRAST INDICATION: AMS TECHNIQUE: All CT scans at this location are performed using CT dose reduction for ALARA by means of automated exposure control. COMPARISON: 01/25/2019 unavailable FINDINGS: BRAIN: No hemorrhage or mass effect are seen. No evidence of acute infarction is noted. ORBITS: Normal as visualized. SOFT TISSUES OF HEAD: Normal. CALVARIUM: Normal. VISUALIZED PARANASAL SINUSES AND MASTOID AIR CELLS: Clear. ADDITIONAL FINDINGS: None. IMPRESSION: No acute intracranial abnormality. Signer Name: Jamie Sandoval MD Signed: 12/27/2020 1:44 AM Workstation Name: [id number]
[2020-12-27] MEDS ORDERED: SODIUM CHLORIDE 0.9% 1000 ML 1,000 ML IV ONE ×2 (10:09→16:03)
--- NOTE | 2020-12-27 10:19 | Emergency Department Report ---
Blank Doc - Documentation Documentation: Patient denied any complaint. Patient sleeping comfortably in no acute distre ss. Vital signs stable. Labs reviewed and showed a CK of 740. Patient started on normal saline. Will repeat CK after fluids. Continue hydration.
--- NOTE | 2020-12-27 11:45 | Consultation ---
History of Present Illness - Reason for Consult Consult date: 12/27/20 Reason for consult: psychosis - History of Present Psychiatric Illness Per ER Note: This is a 20-year-old male who presents to the emergency department for a mental health evaluation and also an evaluation regarding concern over reactions to his psychiatric medications. The patient was diagnosed with schizophrenia about 1.5 years ago. Since that time he has been on 5 or 6 different antipsychotic medications. Currently he has been on Abilify 50 mg nightly over the past 2 to 3 weeks. I spoke to both the patient's sister, and his mother, and they say that the patient has been having some erratic movements that almost look like seizures, some stiffness and he has been having some issues with salivating. He follows with a Dr. Mack and through [facility] services for psychiatry no past medical history. His family also says that they have concerned that the medication is also not working in treating his schizophrenia. He appears to be responding to internal stimuli, show some signs of paranoia and have abnormal behavior. Patient is a poor historian. When asked what brings him to the emergency department for evaluation, the patient says "resting." At the time of my initial examination he is able to answer orientation questions. However, he otherwise is not forthcoming with any information. During my evaluation of the patient he is lying down, it is difficult to engage him. He is not answering questions directly and is staring most of the time. He is responding to internal stimuli. His thoughts are disorganized. The sitter says the patient has been standing on top of stuff and disorganized. PAST PSYCHIATRIC HISTORY unanble to obtain PAST MEDICAL HISTORY: None reported Family Psychiatric History: None reported or documented SOCIAL HISTORY unable to obtain REVIEW OF SYSTEMS unable to obtain MENTAL STATUS EXAMINATION Unable to assess adequately Assessment and Plan (1) Schizophrenia Current Visit: Yes Status: Acute Treatment Plan 1013 Decrease home Abilfy 10mg po daily Start Cogentin 0.5mg po BID Start Trazodone 50mg po qhs sitter: Defer to primary Medical: Per [facility] Disposition: recommend acute psychiatric inpatient treatment Will follow. Thank you for this consult. Case staffed with Dr. Jerez Medications and Allergies Allergies Allergy/AdvReac Type Severity Reaction Status Date / Time No Known Allergies Allergy Unverified 01/25/19 09:55 Home Medications Medication Instructions Recorded Confirmed Last Taken Type traMADoL [Ultram] 50 mg PO Q6HR PRN #12 tablet 02/27/20 Unknown Rx Mental Status Exam - Vital signs Last Vital Signs Temp 97.9 F 12/27/20 08:10 Pulse 66 12/27/20 08:10 Resp 20 12/27/20 08:10 BP 109/50 12/27/20 08:10 Pulse Ox 100 12/27/20 08:10 Results Result Diagrams: 12/26/20 19:03 12/26/20 19:03 Abnormal lab results 12/26/20 12/26/20 12/26/20 Range/Units 19:03 19:03 19:03 MCV 82 L (84-94) fl MCH 27 L (28-32) pg [place] % (Auto) 11.5 H (0.0-7.3) % Glucose 69 L (75-100) mg/dL Total Creatine Kinase (55-170) units/L Salicylates < 0.3 L (2.8-20.0) mg/dL Acetaminophen (10.0-30.0) ug/mL 12/26/20 12/27/20 Range/Units 19:03 01:55 MCV (84-94) fl MCH (28-32) pg [place] % (Auto) (0.0-7.3) % Glucose (75-100) mg/dL Total Creatine Kinase 765 H (55-170) units/L Salicylates (2.8-20.0) mg/dL Acetaminophen 5.0 L (10.0-30.0) ug/mL All other labs normal.
[2020-12-27 12:09] LABS: Amphetamine Screen,Urine Negative; Benzodiazepines Screen,Urine Negative; Cannabinoid Screen,Urine Negative; Cocaine Screen,Urine Negative; Methadone Screen,Urine Negative; Opiate Screen,Urine Negative
[2020-12-27 12:13] LABS: Bacteria,Urine 1+ /HPF (Negative); Bilirubin,Urine NEG (Negative); Blood,Urine NEG (Negative); Color,Urine Yellow (Yellow); Mucus,Urine FEW /HPF; Protein,Urine <15 mg/dL mg/dL (Negative); WBC,Urine < 1.0 /HPF (0.0-6.0)
[2020-12-27] MEDS: BENZTROPINE 0.5 MG TAB PO SCH ×2 (13:55→23:01)
[2020-12-27] MEDS ORDERED: ZIPRASIDONE MESYLATE 20 MG VIAL IM ONE ×3 (17:45→18:36)
[2020-12-27] MEDS ORDERED: WATER FOR INJ Sterile (PF) 10 ML ONE (18:34)
[2020-12-27] MEDS ORDERED: traZODone 50 MG TAB PO SCH (22:00)
[2020-12-27] MEDS ORDERED: DEXTROSE 50% IN WATER (25GM) 50 ML VIAL IV PRN (22:52)
--- NOTE | 2020-12-27 22:56 | Event Note ---
Date: 12/27/20 The patient was evaluated in the emergency department for symptoms described in the history of present illness. He/she was evaluated in the context of the global COVID-19 pandemic, which necessitated consideration that the patient might be at risk for infection with the virus that causes COVID-19. Institutional protocols and algorithms that pertain to the evaluation of patients at risk for COVID-19 are in a state of rapid change based on information released by regulatory bodies including the CDC and federal and state organizations. These policies and algorithms were followed during the patient's care in the emergency department. Please note that these policies, procedures and recommendations changed on a rapid basis. Nurse currently care for the patient has asked if this patient requires IV fluids at this time. Laboratory studies are reviewed and appreciated. The patient has been walking around without difficulty. He is currently resting comfortably on her stretcher, and he is in no acute distress. As per prior examinations, it does not appear that he had any tense or tender muscular compartments. CK of 720 does not meet definition criteria for rhabdomyolysis, especially with young age, and normal renal function. This will decrease on its own with rest, oral hydration. Patient does not require intravenous fluids at this time, or repeat testing for elevated CK at this time. This should downtrend on its own, unless the patient has a change in clinical status, which we will diligently monitor for. Glucose of 69 however is appreciated from yesterday, therefore, Accu-Chek ordered, as needed dextrose ordered, and meal trays ordered. Current care team for patient indicates that he has eaten without difficulty. Vital Signs 12/27/20 12/27/20 12/27/20 00:50 03:30 08:10 Temperature 97.7 F 97.9 F Pulse Rate 62 66 Respiratory 18 18 20 Rate Blood Pressure 136/84 109/50 [Left] O2 Sat by Pulse 98 100 100 Oximetry 12/27/20 12/27/20 19:54 20:13 Temperature 97.9 F Pulse Rate 59 L Respiratory 18 16 Rate Blood Pressure 112/58 [Left] O2 Sat by Pulse 98 Oximetry Lab Results 12/26/20 12/26/20 12/26/20 Range/Units 19:03 19:03 19:03 WBC 5.9 (4.5-11.0) K/mm3 RBC 4.85 (3.65-5.03) M/mm3 Hgb 12.9 (11.8-15.2) gm/dl Hct 39.5 (35.5-45.6) % MCV 82 L (84-94) fl MCH 27 L (28-32) pg MCHC 33 (32-34) % RDW 14.0 (13.2-15.2) % Plt Count 254 (140-440) K/mm3 Lymph % (Auto) 22.7 (13.4-35.0) % [place] % (Auto) 11.5 H (0.0-7.3) % Eos % (Auto) 2.7 (0.0-4.3) % Baso % (Auto) 0.9 (0.0-1.8) % Lymph # (Auto) 1.3 (1.2-5.4) K/mm3 [place] # (Auto) 0.7 (0.0-0.8) K/mm3 Eos # (Auto) 0.2 (0.0-0.4) K/mm3 Baso # (Auto) 0.1 (0.0-0.1) K/mm3 Seg Neutrophils % 62.2 (40.0-70.0) % Seg Neutrophils # 3.7 (1.8-7.7) K/mm3 Sodium 138 (137-145) mmol/L Potassium 3.9 (3.6-5.0) mmol/L Chloride 102.9 (98-107) mmol/L Carbon Dioxide 26 (22-30) mmol/L Anion Gap 13 mmol/L BUN 11 (9-20) mg/dL Creatinine 0.9 (0.8-1.3) mg/dL Estimated GFR > 60 ml/min BUN/Creatinine Ratio 12 % Glucose 69 L (75-100) mg/dL Calcium 8.8 (8.4-10.2) mg/dL Total Bilirubin 0.60 (0.1-1.2) mg/dL AST 26 (5-40) units/L ALT 12 (7-56) units/L Alkaline Phosphatase 45 (35-129) units/L Ammonia (25-60) umol/L Total Creatine Kinase (55-170) units/L Total Protein 7.2 (6.3-8.2) g/dL Albumin 4.4 (3.9-5) g/dL Albumin/Globulin Ratio 1.6 % TSH 1.020 (0.270-4.200) mlU/mL Urine Color (Yellow) Urine Turbidity (Clear) Urine pH (5.0-7.0) Ur Specific Corona (1.003-1.030) Urine Protein (Negative) mg/dL Urine Glucose (UA) (Negative) mg/dL Urine Ketones (Negative) mg/dL Urine Blood (Negative) Urine Nitrite (Negative) Urine Bilirubin (Negative) Urine Urobilinogen (<2.0) mg/dL Ur Leukocyte Esterase (Negative) Urine WBC (Auto) (0.0-6.0) /HPF Urine RBC (Auto) (0.0-6.0) /HPF Urine Bacteria (Auto) (Negative) /HPF Urine Mucus /HPF Salicylates (2.8-20.0) mg/dL Urine Opiates Screen Urine Methadone Screen Acetaminophen (10.0-30.0) ug/mL Ur Barbiturates Screen Ur Phencyclidine Scrn Ur Amphetamines Screen U Benzodiazepines Scrn Urine Cocaine Screen U Marijuana (THC) Screen Drugs of Abuse Note Coronavirus (PCR) (Negative) 12/26/20 12/26/20 12/27/20 Range/Units 19:03 19:03 01:55 WBC (4.5-11.0) K/mm3 RBC (3.65-5.03) M/mm3 Hgb (11.8-15.2) gm/dl Hct (35.5-45.6) % MCV (84-94) fl MCH (28-32) pg MCHC (32-34) % RDW (13.2-15.2) % Plt Count (140-440) K/mm3 Lymph % (Auto) (13.4-35.0) % [place] % (Auto) (0.0-7.3) % Eos % (Auto) (0.0-4.3) % Baso % (Auto) (0.0-1.8) % Lymph # (Auto) (1.2-5.4) K/mm3 [place] # (Auto) (0.0-0.8) K/mm3 Eos # (Auto) (0.0-0.4) K/mm3 Baso # (Auto) (0.0-0.1) K/mm3 Seg Neutrophils % (40.0-70.0) % Seg Neutrophils # (1.8-7.7) K/mm3 Sodium (137-145) mmol/L Potassium (3.6-5.0) mmol/L Chloride (98-107) mmol/L Carbon Dioxide (22-30) mmol/L Anion Gap mmol/L BUN (9-20) mg/dL Creatinine (0.8-1.3) mg/dL Estimated GFR ml/min BUN/Creatinine Ratio % Glucose (75-100) mg/dL Calcium (8.4-10.2) mg/dL Total Bilirubin (0.1-1.2) mg/dL AST (5-40) units/L ALT (7-56) units/L Alkaline Phosphatase (35-129) units/L Ammonia (25-60) umol/L Total Creatine Kinase 765 H (55-170) units/L Total Protein (6.3-8.2) g/dL Albumin (3.9-5) g/dL Albumin/Globulin Ratio % TSH (0.270-4.200) mlU/mL Urine Color (Yellow) Urine Turbidity (Clear) Urine pH (5.0-7.0) Ur Specific Corona (1.003-1.030) Urine Protein (Negative) mg/dL Urine Glucose (UA) (Negative) mg/dL Urine Ketones (Negative) mg/dL Urine Blood (Negative) Urine Nitrite (Negative) Urine Bilirubin (Negative) Urine Urobilinogen (<2.0) mg/dL Ur Leukocyte Esterase (Negative) Urine WBC (Auto) (0.0-6.0) /HPF Urine RBC (Auto) (0.0-6.0) /HPF Urine Bacteria (Auto) (Negative) /HPF Urine Mucus /HPF Salicylates < 0.3 L (2.8-20.0) mg/dL Urine Opiates Screen Urine Methadone Screen Acetaminophen 5.0 L (10.0-30.0) ug/mL Ur Barbiturates Screen Ur Phencyclidine Scrn Ur Amphetamines Screen U Benzodiazepines Scrn Urine Cocaine Screen U Marijuana (THC) Screen Drugs of Abuse Note Coronavirus (PCR) (Negative) 12/27/20 12/27/20 12/27/20 Range/Units 01:55 06:13 13:28 WBC (4.5-11.0) K/mm3 RBC (3.65-5.03) M/mm3 Hgb (11.8-15.2) gm/dl Hct (35.5-45.6) % MCV (84-94) fl MCH (28-32) pg MCHC (32-34) % RDW (13.2-15.2) % Plt Count (140-440) K/mm3 Lymph % (Auto) (13.4-35.0) % [place] % (Auto) (0.0-7.3) % Eos % (Auto) (0.0-4.3) % Baso % (Auto) (0.0-1.8) % Lymph # (Auto) (1.2-5.4) K/mm3 [place] # (Auto) (0.0-0.8) K/mm3 Eos # (Auto) (0.0-0.4) K/mm3 Baso # (Auto) (0.0-0.1) K/mm3 Seg Neutrophils % (40.0-70.0) % Seg Neutrophils # (1.8-7.7) K/mm3 Sodium (137-145) mmol/L Potassium (3.6-5.0) mmol/L Chloride (98-107) mmol/L Carbon Dioxide (22-30) mmol/L Anion Gap mmol/L BUN (9-20) mg/dL Creatinine (0.8-1.3) mg/dL Estimated GFR ml/min BUN/Creatinine Ratio % Glucose (75-100) mg/dL Calcium (8.4-10.2) mg/dL Total Bilirubin (0.1-1.2) mg/dL AST (5-40) units/L ALT (7-56) units/L Alkaline Phosphatase (35-129) units/L Ammonia 39.0 (25-60) umol/L Total Creatine Kinase 721 H (55-170) units/L Total Protein (6.3-8.2) g/dL Albumin (3.9-5) g/dL Albumin/Globulin Ratio % TSH (0.270-4.200) mlU/mL Urine Color (Yellow) Urine Turbidity (Clear) Urine pH (5.0-7.0) Ur Specific Corona (1.003-1.030) Urine Protein (Negative) mg/dL Urine Glucose (UA) (Negative) mg/dL Urine Ketones (Negative) mg/dL Urine Blood (Negative) Urine Nitrite (Negative) Urine Bilirubin (Negative) Urine Urobilinogen (<2.0) mg/dL Ur Leukocyte Esterase (Negative) Urine WBC (Auto) (0.0-6.0) /HPF Urine RBC (Auto) (0.0-6.0) /HPF Urine Bacteria (Auto) (Negative) /HPF Urine Mucus /HPF Salicylates (2.8-20.0) mg/dL Urine Opiates Screen Urine Methadone Screen Acetaminophen (10.0-30.0) ug/mL Ur Barbiturates Screen Ur Phencyclidine Scrn Ur Amphetamines Screen U Benzodiazepines Scrn Urine Cocaine Screen U Marijuana (THC) Screen Drugs of Abuse Note Coronavirus (PCR) Negative (Negative) 12/27/20 12/27/20 Range/Units Unknown Unknown WBC (4.5-11.0) K/mm3 RBC (3.65-5.03) M/mm3 Hgb (11.8-15.2) gm/dl Hct (35.5-45.6) % MCV (84-94) fl MCH (28-32) pg MCHC (32-34) % RDW (13.2-15.2) % Plt Count (140-440) K/mm3 Lymph % (Auto) (13.4-35.0) % [place] % (Auto) (0.0-7.3) % Eos % (Auto) (0.0-4.3) % Baso % (Auto) (0.0-1.8) % Lymph # (Auto) (1.2-5.4) K/mm3 [place] # (Auto) (0.0-0.8) K/mm3 Eos # (Auto) (0.0-0.4) K/mm3 Baso # (Auto) (0.0-0.1) K/mm3 Seg Neutrophils % (40.0-70.0) % Seg Neutrophils # (1.8-7.7) K/mm3 Sodium (137-145) mmol/L Potassium (3.6-5.0) mmol/L Chloride (98-107) mmol/L Carbon Dioxide (22-30) mmol/L Anion Gap mmol/L BUN (9-20) mg/dL Creatinine (0.8-1.3) mg/dL Estimated GFR ml/min BUN/Creatinine Ratio % Glucose (75-100) mg/dL Calcium (8.4-10.2) mg/dL Total Bilirubin (0.1-1.2) mg/dL AST (5-40) units/L ALT (7-56) units/L Alkaline Phosphatase (35-129) units/L Ammonia (25-60) umol/L Total Creatine Kinase (55-170) units/L Total Protein (6.3-8.2) g/dL Albumin (3.9-5) g/dL Albumin/Globulin Ratio % TSH (0.270-4.200) mlU/mL Urine Color Yellow (Yellow) Urine Turbidity Clear (Clear) Urine pH 6.0 (5.0-7.0) Ur Specific [place]ona 1.026 (1.003-1.030) Urine Protein <15 mg/dl (Negative) mg/dL Urine Glucose (UA) Neg (Negative) mg/dL Urine Ketones Neg (Negative) mg/dL Urine Blood Neg (Negative) Urine Nitrite Neg (Negative) Urine Bilirubin Neg (Negative) Urine Urobilinogen 2.0 (<2.0) mg/dL Ur Leukocyte Esterase Neg (Negative) Urine WBC (Auto) < 1.0 (0.0-6.0) /HPF Urine RBC (Auto) 2.0 (0.0-6.0) /HPF Urine Bacteria (Auto) 1+ (Negative) /HPF Urine Mucus Few /HPF Salicylates (2.8-20.0) mg/dL Urine Opiates Screen Negative Urine Methadone Screen Negative Acetaminophen (10.0-30.0) ug/mL Ur Barbiturates Screen Negative Ur Phencyclidine Scrn Negative Ur Amphetamines Screen Negative U Benzodiazepines Scrn Negative Urine Cocaine Screen Negative U Marijuana (THC) Screen Negative Drugs of Abuse Note Disclamer Coronavirus (PCR) (Negative) Vital Signs 12/27/20 12/27/20 12/27/20 00:50 03:30 08:10 Temperature 97.7 F 97.9 F Pulse Rate 62 66 Respiratory 18 18 20 Rate Blood Pressure 136/84 109/50 [Left] O2 Sat by Pulse 98 100 100 Oximetry 12/27/20 12/27/20 19:54 20:13 Temperature 97.9 F Pulse Rate 59 L Respiratory 18 16 Rate Blood Pressure 112/58 [Left] O2 Sat by Pulse 98 Oximetry
--- NOTE | 2020-12-28 08:07 | Progress Note ---
Subjective - Reason for Consult Consult date: 12/28/20 Reason for consult: acute psychosis - Chief Complaint Chief complaint: The patient was seen today, he is a/o x 2. He is easily distracted. The patient is responding to internal stimuli. He is looking around and appears to be listening to something. When asking the patient was he hallucinating he pauses then says, "no." When asking him was he SI/HI, he does not immediately responds but appears to be thinking, he then says "no." The sitter today states the person has been acting worse, and acting bizarre. The sitter says the patient has been talking to himself, flushing the toilet repeatedly for no reason, spitting in all of the trash cans, walking to the front door and just standing there looking. He also states the patient has been standing on top of furniture and that they were about to put him in isolation. REVIEW OF SYSTEMS Constitutional: Negative for weight loss ENT: Negative for stridor Respiratory: Negative for cough or hemoptysis All other systems reviewed and are negative MENTAL STATUS EXAMINATION General Appearance and Behavior: Age appropriate, good hygiene, not wearing appropriate clothes, good eye contact, cooperative polite with questioning. Cooperation: Participating/engaged Psychomotor Behavior: Psychomotor agitation Mood: oka Affect and affective range: euthymic Thought Process: Circumstantial Thought Content: responding to internal stimuli Speech: Normal tone and pace Intellectual Functioning: Average Suicidal Ideation: Denies SI Homicidal Ideation: Denies HI Hallucinations: Auditory Delusions: None elicited Impulse Control: Impaired Insight and Judgment: Limited insight and judgment Memory: Normal, Attention: Divided attention impaired Orientation: Alert, oriented, Assessment and Plan (1) Schizophrenia Current Visit: Yes Status: Acute Treatment Plan 1013 Increase Abilfy 15mg po daily Continue Cogentin 0.5mg po BID Continue Trazodone 50mg po qhs sitter: Defer to primary Medical: Per donna Disposition: recommend acute psychiatric inpatient treatment Will follow. Thank you for this consult. Case staffed with Dr. Jerez Mental Status Exam - Vital signs Last Vital Signs Temp 96.9 F L 12/28/20 07:58 Pulse 74 12/28/20 07:58 Resp 20 12/28/20 07:58 BP 115/58 12/28/20 07:58 Pulse Ox 97 12/28/20 07:58
[2020-12-28] MEDS ORDERED: ARIPiprazole 15 MG TAB PO SCH (10:00)
[2020-12-28] MEDS: BENZTROPINE 0.5 MG TAB PO SCH (10:00)
[2020-12-28] MEDS ORDERED: ARIPiprazole 10 MG TAB PO SCH (10:00)
--- NOTE | 2020-12-28 10:19 | Event Note ---
Date: 12/28/20 Patient is pacing around. No acute events overnight. Vital signs stable. CK was elevated yesterday. Today CK is pending. We will continue to monitor.
[2020-12-28 15:30] VITALS: BP 126/82
== END 2020-12-28 18:48 ==
LOC: ED 16:26
DX: F23 Brief psychotic disorder (principal); Z20.822 Contact with and (suspected) exposure to COVID-19; F17.200 Nicotine dependence, unspecified, uncomplicated; Z72.89 Other problems related to lifestyle; Z79.899 Other long term (current) drug therapy
CPT/HCPCS: 36415; 70450; 80053; 80307; 81001; 82140; 82550; 82962; 84443; 85025; 96360; 96372; 99285; J3486; J7030; U0003; 80320; G0480